=== PATIENT | female | born 1965 | race Caucasian/White ===

== ENCOUNTER → 2018-01-09 | Outpatient (CLI) | payer OTHER ==
--- NOTE | 2018-01-09 13:18 | Diagnostic Imaging Report ---
INDICATION: Routine screening. COMPARISON: No prior mammograms are available for comparison. TECHNIQUE: Screening digital mammography was performed bilaterally with a Computer Aided Detection (CAD) system. FINDINGS: Both breasts are primarily involutional. There is a density identified in the upper and outer aspect of the left breast at anterior to mid depth. This appears fairly circumscribed and may represent a cyst. No other masses are seen. There are benign calcifications present. The axillae are unremarkable. IMPRESSION: Small density in the upper outer left breast. Further evaluation with additional views and ultrasound would be recommended. ACR BI-RADS Category 0: Incomplete. (Needs additional imaging evaluation). Result letter will be mailed to the patient. Note: At least 10% of breast cancer is not imaged by mammography. Dictated by: Dictated on workstation # [id number]
== END ==
LOC: RAD 08:30
PROVIDERS: ATTEND Nurse Practitioner Family
DX: Z12.31 Encounter for screening mammogram for malignant neoplasm of breast (principal)
CPT/HCPCS: 77067

== ENCOUNTER → 2019-08-08 | Outpatient (CLI) | payer OTHER ==
--- NOTE | 2019-08-08 09:43 | Diagnostic Imaging Report ---
INDICATION: Left breast density. Patient presents for additional views. Correlation is made with prior mammogram from 01/09/2018. 2-D and 3-D bilateral diagnostic mammography was performed with Computer Aided Detection (CAD) system. 3-D tomosynthesis was also performed and reviewed. FINDINGS: Scattered fibroglandular densities are identified bilaterally. There is a circumscribed nodule in the upper outer left breast approximately 8 cm from the nipple. This is approximately 4 mm in size. No other masses are seen. No suspicious microcalcifications are seen. Axillae are unremarkable. IMPRESSION: 4 mm circumscribed density upper outer left breast 8 cm from the nipple. This has fairly benign features and may represent a small cyst or lymph node. Further evaluation with ultrasound is recommended and will be performed today. ACR BI-RADS Category 0: Incomplete. (Needs additional imaging evaluation). Result letter will be mailed to the patient. Note: At least 10% of breast cancer is not imaged by mammography. Dictated by: Dictated on workstation # [id number]
--- NOTE | 2019-08-08 16:01 | Diagnostic Imaging Report ---
INDICATION: Left breast nodule. CORRELATION is made with diagnostic mammogram earlier the same day and screening mammogram from 01/09/2018. FINDINGS: Sonographic interrogation of the upper outer left breast was performed. There is a tiny circumscribed hypoechoic nodule at the 2:00 o'clock location, 6 cm from the nipple. This measures 4 mm x 3 mm x 3 mm. This corresponds in size and location to the mammographic density. This has benign features and may represent a small cyst or other benign nodule. No other mass is detected. IMPRESSION: BI-RADS Category 2. Benign-appearing circumscribed nodule at the 2:00 o'clock location of the left breast 6 cm from the nipple. This corresponds in size and location to the mammographic density. The patient may return to routine annual screening mammography. Dictated by: Dictated on workstation # [id number]
== END ==
LOC: RAD 09:01
PROVIDERS: ATTEND Nurse Practitioner Family
DX: N63.21 Unspecified lump in the left breast, upper outer quadrant (principal); R92.8 Other abnormal and inconclusive findings on diagnostic imaging of breast
CPT/HCPCS: 76642; 77066